=== PATIENT | male | born 1960 | race African-American/Black ===

== ENCOUNTER 2019-07-22 15:09 | Emergency (ER) | payer OTHER ==
[2019-07-22 15:34] VITALS: BP 115/75; PULSE 70; TEMP 98.5; BMI 24.3
--- NOTE | 2019-07-22 16:19 | PDOC ---
History of Present Illness - General Chief Complaint: Shortness of Breath Stated Complaint: PAIN Time Seen by Provider: 07/22/19 15:50 - History of Present Illness Initial Comments: 07/22/19 16:13 58 yo M PMH HTN, progressive blindness of unknown etiology (still able to walk by himself, has light sensitivity, possibly hereditary from his mother), remote history of walking PNA 20 years ago, presenting with SOB. States that it has been worsening over past 2 weeks, R sided chest tightness worsened by taking deep breath, associated with cough productive of foam. Patient states "I think I have a pneumonia". Denies CP, abd pain, fevers, constipation/diarrhea, N/V, SEAY. Endorses feeling chills today. Past History - Past Medical History Allergies/Adverse Reactions: Allergies Allergy/AdvReac Type Severity Reaction Status Date / Time chocolate flavor Allergy Verified 07/22/19 16:03 tree nut Allergy Verified 07/22/19 16:04 Home Medications: Ambulatory Orders Albuterol Sulfate Inhaler - [Ventolin HFA Inhaler -] 1 puff IH PRN 07/22/19 Amlodipine Besylate 10 mg PO BID 07/22/19 COPD: No - Immunization History Immunization Up to Date: No - Psycho Social/Smoking Cessation Hx Smoking Status: Yes Smoking History: Current every day smoker Number of Cigarettes Smoked Daily: 10 Information on smoking cessation initiated: No Hx Alcohol Use: No Drug/Substance Use Hx: No *Physical Exam - Vital Signs Last Vital Signs Temp Pulse Resp BP Pulse Ox 98.5 F 70 17 115/75 100 07/22/19 15:20 07/22/19 15:20 07/22/19 15:20 07/22/19 15:20 07/22/19 15:20 - Physical Exam Comments: 07/22/19 16:17 Gen: well-developed, well-nourished, NAD Neuro: AAOX4, CN II-XII intact, FTN intact, EOMI, PERRLA, 5/5 strength, SILT HEENT: atraumatic, normocephalic, dry mucous membranes Neck: trachea midline, supple CV: regular rate, regular rhythm, no murmurs, rubs, or gallops Pulm: R sided inspiratory and expiratory wheezing Abd: soft, non-distended, non-tender MSK: full ROM, intact pulses Extr: no edema, no deformities Skin: warm, dry ED Treatment Course - LABORATORY CBC & Chemistry Diagram: 07/22/19 16:00 07/22/19 16:00 - RADIOLOGY Radiology Studies Ordered: Category Date Time Status CHEST PA & LAT [RAD] Stat Radiology 07/22/19 16:12 Ordered Medical Decision Making - Medical Decision Making 07/22/19 16:19 Concern for PNA v PE. - CBC, CMP - trop - Chest PA + L - D-dimer 07/22/19 17:15 EKG normal sinus at 59 bpm, no ST segment elevations or T wave inversions. 07/22/19 17:54 CXR with no acute pathology. Labs wnl except WBC 3.9, elevated D-dimer. Will get CTA r/o PE. 07/22/19 20:20 Patient feeling better s/p Duoneb. Will give 2 more amps. 07/22/19 21:04 CTA shows no PE, however, does show paraseptal emphysema. Will recommend that patient stop smoking, follow up with PCP and retread technician. Discharge - Discharge Information Problems reviewed: Yes Clinical Impression/Diagnosis: Emphysema lung Condition: Improved - Follow up/Referral Referrals: Facundo Lucas [Primary Care Provider] - Maximo Jaquez MD, MD [Staff Physician] - - Patient Discharge Instructions Patient Printed Discharge Instructions: DI for Emphysema Additional Instructions: You were seen with shortness of breath. Your labs were unremarkable, and your symptoms improved with treatment. However, your CT chest showed that you have emphysema, which is a disease that affects smokers. It is very important that you stop smoking. Follow up with your primary care doctor within a week, and please reach out to the retread technician we referred you to in order to make an appointment. Return to the ED if you develop worsening symptoms. - Post Discharge Activity
[2019-07-22 16:48] LABS: BASO % 0.4 % (0-2.0); EOS % 5.5 % (0-4.5); HEMATOCRIT 43.5 % (35.4-49); HEMOGLOBIN 14.3 GM/dL (11.7-16.9); LYMPH % 38.1 % (8-40); MCH 30.9 pg (25.7-33.7); MCHC 32.9 g/dl (32.0-35.9); MEAN CELL VOLUME 93.9 fl (80-96); MEAN PLT VOLUME 8.1 fl (7.5-11.1); MONO % 13.9 % (3.8-10.2); NEUT % 42.1 % (42.8-82.8); PLATELET COUNT 216 K/MM3 (134-434); RBC 4.63 M/mm3 (4.00-5.60); RDW 14.2 % (11.9-15.9); WHITE BLOOD COUNT 3.9 K/mm3 (4.0-10.0)
[2019-07-22] MEDS ORDERED: ALBUTEROL SO4 2.5/IPRATROPIUM 0.5 INH SOL 3 ML VIAL.NEB. NEB ONE ×4 (16:53→20:41)
--- NOTE | 2019-07-22 16:53 | PDOC ---
Documentation entered by Mylene Nuno SCRIBE, acting as scribe for Dayami Turner MD. Dayami Turner MD: This documentation has been prepared by the maxineibe, Mylene Nuno SCRIBE, under my direction and personally reviewed by me in its entirety. I confirm that the documentation accurately reflects all work, treatment, procedures, and medical decision making performed by me. Attending Attestation - Resident Resident Name: Tony Garcia - ED Attending Attestation I have performed the following: I have examined & evaluated the patient, The case was reviewed & discussed with the resident, I agree w/resident's findings & plan, Exceptions are as noted - HPI HPI: 07/22/19 16:19 The patient is a 58-year-old male with a past medical history significant for HTN who presents to the emergency department with shortness of breath. The patient presents with 2 weeks of shortness of breath, concerned that he has pneumonia. The patient reports associated symptoms of right-sided pleuritic thoracic back pain, chills, and cough with "foam" production. Denies fever, recent sick contacts. Denies abdominal pain, urinary symptoms, or changes in bowel habits. Denies headache, dizziness, focal weakness or numbness, nausea, vomiting, diarrhea. Denies any recent travel or immobility. Denies any calf pain. He has no personal or family history of clots. No treatments tried. - Physicial Exam PE: 07/22/19 16:19 GENERAL: Awake, alert, and fully oriented, in no acute distress EYES: PERRLA, EOMI, sclera anicteric, conjunctiva clear ENT: Oropharynx clear without exudates. Moist mucosa NECK: Normal ROM, supple, no lymphadenopathy, JVD, or masses LUNGS: mild right sided expiratory wheezing . no crackles, rhonchi HEART: Regular rate and rhythm, normal S1 and S2, no murmurs, rubs or gallops ABDOMEN: Soft, nontender, normoactive bowel sounds. No guarding, no rebound. No masses EXTREMITIES: Normal range of motion, no edema. No cords, erythema, or tenderness NEUROLOGICAL: Normal speech, cranial nerves intact, equal strength and sensation b/l SKIN: Warm, Dry, normal turgor, no rashes or lesions noted. - Medical Decision Making 07/22/19 16:49 58yo M hx HTN Presents to the emergency department with 2 weeks of right-sided progressive shortness of breath and pleuritic thoracic back pain. Vitals within normal limits. Exam with mild expiratory wheezing in the right lung, otherwise within normal limits. Differential includesasthma versus pulmonary embolism versus pneumonia versus bronchitis Plan for labs including troponin, dimer, chest x-ray and reassess. 07/22/19 19:00 Work-up remarkable for positive d-dimer. Troponin is negative. CTA ordered to rule out PE. PT stable, well appearing at this time Case signed out to overnight attending Dr. Cuadra for follow-up on CTA and further management. Heart Score/ECG Review - History History: Slightly suspicious - Electrocardiogram EKG: Normal - Age Age: 45-65 - Risk Factors Risk Factors Heart Score: Yes Hx Hypertension Based on the list above the patient has:: 1-2 risk factors - Troponin Troponin: </= normal limit - Score Heart Score - Total: 2 #1 07/22/19 16:51 Twelve-lead EKG was performed and reviewed by me. Sinus bradycardia, rate 59. Normal axis and intervals. No ST elevations or T wave inversions.
[2019-07-22 17:20] LABS: ALBUMIN 4.1 g/dl (3.4-5.0); BILIRUBIN,TOTAL 0.5 mg/dL (0.2-1); BLOOD UREA NITROGEN 14.1 mg/dL (7-18); CALCIUM 9.4 mg/dL (8.5-10.1); POTASSIUM 4.2 mmol/L (3.5-5.1); TOT PROT 7.3 g/dl (6.4-8.2)
--- NOTE | 2019-07-22 21:08 | PDOC ---
*Physical Exam - Vital Signs Last Vital Signs Temp Pulse Resp BP Pulse Ox 98.5 F 70 17 115/75 100 07/22/19 15:20 07/22/19 15:20 07/22/19 15:20 07/22/19 15:20 07/22/19 16:00 ED Treatment Course - LABORATORY CBC & Chemistry Diagram: 07/22/19 16:00 07/22/19 16:00 - ADDITIONAL ORDERS Additional order review: Laboratory Results 07/22/19 07/22/19 07/22/19 16:00 16:00 16:00 D-Dimer 572 H Sodium 140 Potassium 4.2 Chloride 108 H Carbon Dioxide 23 Anion Gap 9 BUN 14.1 Creatinine 1.0 Est GFR (CKD-EPI)AfAm 95.73 Est GFR (CKD-EPI)NonAf 82.60 Random Glucose 85 Calcium 9.4 Total Bilirubin 0.5 AST 24 ALT 37 Alkaline Phosphatase 66 Troponin I < 0.02 Total Protein 7.3 Albumin 4.1 07/22/19 16:00 RBC 4.63 MCV 93.9 MCHC 32.9 RDW 14.2 MPV 8.1 Neutrophils % 42.1 L Lymphocytes % 38.1 Monocytes % 13.9 H Eosinophils % 5.5 H Basophils % 0.4 - Medications Given in the ED: ED Medications Discontinued Medications Generic Name Dose Route Start Last Admin Trade Name Joaquín PRN Reason Stop Dose Admin Albuterol/Ipratropium 1 amp 07/22/19 16:53 07/22/19 17:40 Duoneb - NEB 07/22/19 16:54 1 amp ONCE ONE Administration Albuterol/Ipratropium 2 amp 07/22/19 20:26 07/22/19 20:51 Duoneb - NEB 07/22/19 20:27 2 amp ONCE ONE Administration Medical Decision Making - Medical Decision Making 07/22/19 21:06 Pt signed out to me; go home if no pulmonary embolism: Patient Name: RYNE FRIED THIS IS A PRELIMINARY REPORT FROM [facility] DATE OF SERVICE: 2019-07-22 19:39:17 IMAGES: [id number] Exam: CT angiogram of the thorax using pulmonary protocol. Clinical indication:Pulmonary embolus. No further information provided. Comparison:None available. Technique: Axial IV contrast-enhanced CT images of the thorax were obtained using pulmonary embolism protocol. Coronal and sagittal reformats were performed. In addition, maximum projection maximum intensity multiplanar imaging of the pulmonary arterial tree was performed for increased diagnostic interpretation. Findings: There are no pulmonary emboli. The thoracic aorta is within normal limits. There is some underlying paraseptal emphysema. The remainder of the pulmonary parenchyma is clear. The visualized portions of the airway are within normal limits. There is no pleural abnormality. There are no enlarged axillary, hilar or mediastinal lymph nodes, by size criteria. The mediastinal structures are unremarkable. The visualized portions of the upper abdomen are within normal limits. The visualized bony structures are within normal limits for the patient's age. Impression: 1. No pulmonary emboli. 2. Underlying paraseptal emphysema. 07/22/19 21:07 Pt hAS EMPHYSEMa and he will be referred back to Dr. Jaquez. Discharge - Discharge Information Problems reviewed: Yes Clinical Impression/Diagnosis: Emphysema lung Condition: Stable Disposition: HOME - Admission No - Follow up/Referral Referrals: Facundo Lucas [Primary Care Provider] - Maximo Jaquez MD, MD [Staff Physician] - - Patient Discharge Instructions Patient Printed Discharge Instructions: DI for Emphysema Additional Instructions: You were seen with shortness of breath. Your labs were unremarkable, and your symptoms improved with treatment. However, your CT chest showed that you have emphysema, which is a disease that affects smokers. It is very important that you stop smoking. Follow up with your primary care doctor within a week, and please reach out to the obstetrician/gynecologist we referred you to in order to make an appointment. Return to the ED if you develop worsening symptoms. - Post Discharge Activity
[2019-07-22 22:20] LABS: PLATELET ESTIMATE ADEQUATE
--- NOTE | 2019-07-23 10:38 | EKG ---
Test Reason : Blood Pressure : / mmHG Vent. Rate : 059 BPM Atrial Rate : 059 BPM P-R Int : 150 ms QRS Dur : 084 ms QT Int : 416 ms P-R-T Axes : 075 008 045 degrees QTc Int : 411 ms SINUS BRADYCARDIA OTHERWISE NORMAL ECG WHEN COMPARED WITH ECG OF 07-SEP-2006 17:10, QUESTIONABLE CHANGE IN QRS AXIS Confirmed by MD SKYE, JOSH ([id number]) on 07/23/2019 10:38:13 AM Referred By: Confirmed By:JOSH CHEUNG MD
== END 2019-07-22 21:19 | disposition home or self-care (01) ==
LOC: JER 15:09
PROC: 3E0F7GC Introduction of Other Therapeutic Substance into Respiratory Tract, Via Natural or Artificial Opening (ICD-10-PCS; principal; 2019-07-22)
PROC: 3E0F7GC Introduction of Other Therapeutic Substance into Respiratory Tract, Via Natural or Artificial Opening (ICD-10-PCS; 2019-07-22)
DX: J43.9 Emphysema, unspecified (principal); I10 Essential (primary) hypertension; H54.3 Unqualified visual loss, both eyes; Z91.02 Food additives allergy status; Z91.018 Allergy to other foods
CPT/HCPCS: 36415; 71046-TC-FY; 71275-TC; 80053; 84484; 85025; 85379; 93005; 93010; 94640; 99284-25

== ENCOUNTER 2020-06-12 04:58 | Day surgery (SDC) | payer OTHER ==
[2020-06-11 15:39] VITALS: BMI 27.7
[~2020-06-12 04:58] MED LIST: ACETAMINOPHEN 325 MG TABLET (FP) PO PRN; BSS (NA/CA/MG/K) BALANCED SALT SOLUTION OPHTH SOLN 15 ML BOTTLE OS ONE; CHONDROITIN SU A/HYALUR SOD 1 KIT IO ONE; CYCLOPENTOLATE HCL 1% OPHTH SOLN 2 ML BOTTLE OP SCH; EPINEPHrine/PF 1 MG/1 ML (1:1,000) AMPULE SQ ONE; KETOROLAC TROMETHAMINE 0.5% EYE DROP 1 DROP DROPS OP SCH; LIDOCAINE HCL 1% PRESERVATIVE FREE - 30ML VIAL IO ONE; OFLOXACIN 0.3% OPHTHALMIC SOLUTION 5 ML BOTTLE OP SCH; PHENYLEPHRINE 2.5% OPHTH SOLN 15 ML BOTTLE OP SCH; POVIDONE-IODINE 5% OPHTHALMIC PREP 30 ML SOLUTION OS ONE; TETRACAINE 0.5% OPHTH SOLN 2 ML BOTTLE OS ONE; TROPICAMIDE 1% OPHTH SOLN 15 ML BOTTLE OP SCH
[2020-06-12] MEDS ORDERED: CHONDROITIN SU A/HYALUR SOD 1 KIT ONE (07:11)
[2020-06-12] MEDS ORDERED: LIDOCAINE HCL/PF 1% SDV 5ML VIAL ONE (07:26)
[2020-06-12] MEDS ORDERED: BSS (NA/CA/MG/K) BALANCED SALT SOLUTION OPHTH SOLN 15 ML BOTTLE ONE (07:27)
[2020-06-12] MEDS ORDERED: POVIDONE-IODINE 5% OPHTHALMIC PREP 30 ML SOLUTION ONE (07:27)
[2020-06-12] MEDS ORDERED: TETRACAINE 0.5% OPHTH SOLN 2 ML BOTTLE ONE (07:27)
[2020-06-12] MEDS ORDERED: OFLOXACIN 0.3% OPHTHALMIC SOLUTION 5 ML BOTTLE ONE (08:24)
[2020-06-12] MEDS ORDERED: KETOROLAC TROMETHAMINE 0.5% EYE DROP 1 DROP DROPS ONE (08:25)
[2020-06-12] MEDS ORDERED: CYCLOPENTOLATE HCL 1% OPHTH SOLN 2 ML BOTTLE ONE (08:25)
[2020-06-12] MEDS ORDERED: TROPICAMIDE 1% OPHTH SOLN 15 ML BOTTLE ONE (08:25)
[2020-06-12] MEDS ORDERED: OFLOXACIN 0.3% OPHTHALMIC SOLUTION 5 ML BOTTLE OS ONE ×3 (08:30→08:50)
[2020-06-12] MEDS ORDERED: KETOROLAC TROMETHAMINE 0.5% EYE DROP 1 DROP DROPS OS ONE ×3 (08:30→08:50)
[2020-06-12] MEDS ORDERED: PHENYLEPHRINE 2.5% OPHTH SOLN 15 ML BOTTLE OS ONE ×3 (08:30→08:50)
[2020-06-12] MEDS ORDERED: CYCLOPENTOLATE HCL 1% OPHTH SOLN 2 ML BOTTLE OS ONE ×2 (08:30→08:50)
[2020-06-12] MEDS ORDERED: TROPICAMIDE 1% OPHTH SOLN 15 ML BOTTLE OS ONE ×3 (08:30→08:50)
[2020-06-12] MEDS ORDERED: CYCLOPENTOLATE 2% OPHTH SOLN 2 ML BOTTLE OS ONE (08:40)
[2020-06-12 08:44] VITALS: TEMP 97.7
[2020-06-12] MEDS ORDERED: TETRACAINE 0.5% OPHTH SOLN 2 ML BOTTLE OS ONE (10:16)
[2020-06-12] MEDS ORDERED: POVIDONE-IODINE 5% OPHTHALMIC PREP 30 ML SOLUTION OS ONE ×2 (10:19→10:25)
[2020-06-12] MEDS ORDERED: LIDOCAINE HCL 1% PRESERVATIVE FREE - 30ML VIAL IO ONE (10:30)
[2020-06-12] MEDS ORDERED: CHONDROITIN SU A/HYALUR SOD 1 KIT IO ONE (10:30)
[2020-06-12] MEDS ORDERED: BSS (NA/CA/MG/K) BALANCED SALT SOLUTION OPHTH SOLN 15 ML BOTTLE OS ONE (10:30)
[2020-06-12] MEDS ORDERED: EPINEPHrine/PF 1 MG/1 ML (1:1,000) AMPULE SQ ONE ×2 (10:30→10:41)
[2020-06-12 11:56] VITALS: BP 141/77; PULSE 52
--- NOTE | 2020-06-12 19:28 | SPEC ---
DATE OF OPERATION: 06/12/2020 OPERATION: Phacoemulsification with posterior chamber intraocular lens implantation, left eye. Lens used [id number], 15.0 Diopter power, Serial No. [id number]. PREOPERATIVE DIAGNOSIS: Cataract, left eye. POSTOPERATIVE DIAGNOSIS: Cataract, left eye. SURGEON: French Rodriges M.D. ANESTHESIA: Topical MAC. COMPLICATIONS: None. PROCEDURE: The patient was brought to the operating room and correctly identified along with the operative site and the correct intraocular lens sutton. The patient was then prepped and draped in the usual sterile fashion including 5% Betadine solution in the conjunctival sac and an eyelid drape. An eyelid speculum was then placed in the eye. A paracentesis port was created and approximately 0.5 mL of preservative free Lidocaine was then injected into the eye. Viscoelastic was then injected to inflate the anterior chamber. A temporal clear corneal wound was created. A continuous circular capsulorrhexis was performed. The nucleus was then hydrodissected with BSS and removed with phacoemulsification. The remaining cortical material was irrigated and aspirated. Viscoelastic was injected to inflate the capsular bag and the intraocular lens was then implanted into the capsular bag. The remaining Viscoelastic was irrigated and aspirated from the eye. The IOL was noted to be well centered and completely covered by the anterior capsulorrhexis. Topical vancomycin was placed and the eye patched and shielded. All wounds were tested and found to be watertight. No suture was placed. The eye was then shielded. The patient was then discharged from the operating room in stable condition. Liset [id number]
== END 2020-06-12 11:50 | disposition home or self-care (01) ==
LOC: JASU-SURG 04:58
PROVIDERS: ATTEND Ophthalmology
PROC: 08RK3JZ Replacement of Left Lens with Synthetic Substitute, Percutaneous Approach (ICD-10-PCS; principal; 2020-06-12 10:00)
DX: H26.9 Unspecified cataract (principal)

== ENCOUNTER 2020-06-26 04:39 | Day surgery (SDC) | payer OTHER ==
[2020-06-25 09:33] VITALS: BMI 25.7
[~2020-06-26 04:39] MED LIST changes: +BSS (NA/CA/MG/K) BALANCED SALT SOLUTION OPHTH SOLN 15 ML BOTTLE OD ONE; -BSS (NA/CA/MG/K) BALANCED SALT SOLUTION OPHTH SOLN 15 ML BOTTLE OS ONE; -CYCLOPENTOLATE HCL 1% OPHTH SOLN 2 ML BOTTLE OP SCH; -KETOROLAC TROMETHAMINE 0.5% EYE DROP 1 DROP DROPS OP SCH; -OFLOXACIN 0.3% OPHTHALMIC SOLUTION 5 ML BOTTLE OP SCH; -PHENYLEPHRINE 2.5% OPHTH SOLN 15 ML BOTTLE OP SCH; +POVIDONE-IODINE 5% OPHTHALMIC PREP 30 ML SOLUTION OD ONE; -POVIDONE-IODINE 5% OPHTHALMIC PREP 30 ML SOLUTION OS ONE; +TETRACAINE 0.5% OPHTH SOLN 2 ML BOTTLE OD ONE; -TETRACAINE 0.5% OPHTH SOLN 2 ML BOTTLE OS ONE; -TROPICAMIDE 1% OPHTH SOLN 15 ML BOTTLE OP SCH
[2020-06-26] MEDS ORDERED: EPINEPHrine/PF 1 MG/1 ML (1:1,000) AMPULE ONE (07:16)
[2020-06-26] MEDS ORDERED: LIDOCAINE HCL/PF 1% SDV 5ML VIAL ONE (07:16)
[2020-06-26] MEDS ORDERED: POVIDONE-IODINE 5% OPHTHALMIC PREP 30 ML SOLUTION ONE (07:16)
[2020-06-26] MEDS ORDERED: TETRACAINE 0.5% OPHTH SOLN 2 ML BOTTLE ONE (07:16)
[2020-06-26] MEDS ORDERED: CHONDROITIN SU A/HYALUR SOD 1 KIT ONE (07:19)
[2020-06-26] MEDS ORDERED: KETOROLAC TROMETHAMINE 0.5% EYE DROP 1 DROP DROPS ONE (07:37)
[2020-06-26] MEDS ORDERED: CYCLOPENTOLATE HCL 1% OPHTH SOLN 2 ML BOTTLE ONE (07:37)
[2020-06-26] MEDS ORDERED: TROPICAMIDE 1% OPHTH SOLN 15 ML BOTTLE ONE (07:37)
[2020-06-26] MEDS ORDERED: OFLOXACIN 0.3% OPHTHALMIC SOLUTION 5 ML BOTTLE ONE (07:38)
[2020-06-26] MEDS: PHENYLEPHRINE 2.5% OPHTH SOLN 15 ML BOTTLE OP SCH ×3 (08:10→08:29)
[2020-06-26] MEDS: CYCLOPENTOLATE HCL 1% OPHTH SOLN 2 ML BOTTLE OP SCH ×3 (08:10→08:28)
[2020-06-26] MEDS: TROPICAMIDE 1% OPHTH SOLN 15 ML BOTTLE OP SCH ×3 (08:10→08:29)
[2020-06-26] MEDS: KETOROLAC TROMETHAMINE 0.5% EYE DROP 1 DROP DROPS OP SCH ×3 (08:10→08:28)
[2020-06-26] MEDS: OFLOXACIN 0.3% OPHTHALMIC SOLUTION 5 ML BOTTLE OP SCH ×3 (08:10→08:28)
[2020-06-26] MEDS ORDERED: MIDAZOLAM HCL 2 MG/2 ML SINGLE DOSE VIAL ONE (09:01)
[2020-06-26] MEDS ORDERED: TETRACAINE 0.5% OPHTH SOLN 2 ML BOTTLE OD ONE (09:08)
[2020-06-26] MEDS ORDERED: POVIDONE-IODINE 5% OPHTHALMIC PREP 30 ML SOLUTION OD ONE (09:10)
[2020-06-26] MEDS ORDERED: CHONDROITIN SU A/HYALUR SOD 1 KIT IO ONE (09:16)
[2020-06-26] MEDS ORDERED: BSS (NA/CA/MG/K) BALANCED SALT SOLUTION OPHTH SOLN 15 ML BOTTLE OD ONE (09:16)
[2020-06-26] MEDS ORDERED: LIDOCAINE HCL 1% PRESERVATIVE FREE - 30ML VIAL IO ONE (09:18)
[2020-06-26] MEDS ORDERED: EPINEPHrine/PF 1 MG/1 ML (1:1,000) AMPULE SQ ONE (09:26)
[2020-06-26] MEDS ORDERED: KETOROLAC TROMETHAMINE 30 MG/1 ML VIAL ONE (09:34)
[2020-06-26 09:55] VITALS: TEMP 97.8
[2020-06-26 10:35] VITALS: BP 129/80; PULSE 61
--- NOTE | 2020-06-27 11:09 | SPEC ---
DATE OF OPERATION: 06/26/2020 OPERATION: Phacoemulsification with posterior chamber intraocular lens implantation, right eye. Lens used [id number], 15.0 diopter power, serial number [id number]. PREOPERATIVE DIAGNOSIS: Cataract, right eye. POSTOPERATIVE DIAGNOSIS: Cataract, right eye. SURGEON: Leatha Sheppard M.D. ANESTHESIA: Topical MAC. COMPLICATIONS: None. PROCEDURE: The patient was brought to the operating room and correctly identified along with the operative site and the correct intraocular lens sutton. The patient was then prepped and draped in the usual sterile fashion including 5% Betadine solution in the conjunctival sac and an eyelid drape. An eyelid speculum was then placed in the eye. A paracentesis port was created and approximately 0.5 mL of preservative-free lidocaine was then injected into the eye. Viscoelastic was then injected to inflate the anterior chamber. A temporal clear corneal wound was created. A continuous circular capsulorrhexis was performed. The nucleus was then hydrodissected with BSS and removed with phacoemulsification. The remaining cortical material was irrigated and aspirated. Viscoelastic was injected to inflate the capsular bag and the intraocular lens was then implanted into the capsular bag. The remaining Viscoelastic was irrigated and aspirated from the eye. The IOL was noted to be well centered and completely covered by the anterior capsulorrhexis. Topical vancomycin was placed and the eye patched and shielded. All wounds were tested and found to be watertight. No suture was placed. The eye was then shielded. The patient was then discharged from the operating room in stable condition. LEATHA SHEPPARD M.D. [id number]
== END 2020-06-26 10:35 | disposition home or self-care (01) ==
LOC: JASU-SURG 04:39
PROVIDERS: ATTEND Ophthalmology
PROC: 08RJ3JZ Replacement of Right Lens with Synthetic Substitute, Percutaneous Approach (ICD-10-PCS; principal; 2020-06-26 09:00)
DX: H26.9 Unspecified cataract (principal)

== ENCOUNTER 2024-09-14 11:13 | Emergency (ER) | payer OTHER ==
[2024-09-14 11:35] VITALS: BP 126/72; PULSE 61; RESP 16; TEMP 97.8; BMI 26.9
[2024-09-14 13:25] LABS: EPI CELLS 1 /uL (0-25.1); HYALINE CASTS 0 /uL (0-3.1); URINE APPEARANCE CLEAR; URINE BACTERIA 2 /uL (0-1359); URINE BILIRUBIN NEGATIVE (NEGATIVE); URINE COLOR YELLOW; URINE GLUCOSE (UA) NEGATIVE (NEGATIVE); URINE KETONE 1+ (NEGATIVE); URINE LEUK ESTERASE NEGATIVE (NEGATIVE); URINE NITRITE NEGATIVE (NEGATIVE); URINE PROTEIN NEGATIVE (NEGATIVE); URINE RBC 91 /uL (0-23.9); URINE UROBILINOGEN 0.2 mg/dL (0.2-1.0); URINE WBC 7 /uL (0-25.8)
== END 2024-09-14 13:40 | disposition home or self-care (01) ==
LOC: JER 11:13
DX: K40.90 Unilateral inguinal hernia, without obstruction or gangrene, not specified as recurrent (principal)
CPT/HCPCS: 81003; 87086; 99283-25